=== PATIENT | female | born 2000 | race African-American/Black ===

== ENCOUNTER 2022-05-18 02:55 | Emergency (ER) | payer OTHER ==
[~2022-05-18] VITALS: Ht 172.7 cm; Wt 55.8 kg
[2022-05-18 02:55] VITALS: BP 110/78
--- NOTE | 2022-05-18 04:06 | NUR ---
pt to bed #5
[2022-05-18 04:24] VITALS: BP 120/68
[2022-05-18] MEDS ORDERED: NACL 0.9% 1,000 ML IV ONE ×2 (04:30→05:35)
[2022-05-18] MEDS ORDERED: ONDANSETRON 4 MG/2 ML VIAL IVP ONE ×2 (04:30→06:10)
[2022-05-18] MEDS ORDERED: KETOROLAC 15 MG/ML VIAL IVP ONE (04:30)
[2022-05-18 05:10] LABS: BASOPHILS % (AUTO) 0.2 % (0.0-2.0); EOSINOPHILS % (AUTO) 0.4 % (0.0-4.0); HEMATOCRIT 35.6 % (36-48); HEMOGLOBIN 11.9 g/dL (12.0-16.0); LYMPHOCYTES # (AUTO) 1.4 K/uL (2.5-16.5); LYMPHOCYTES % (AUTO) 20.3 % (20.5-51.1); MEAN CORPUSCULAR HEMOGLOBIN 30 pg (27-31); MEAN CORPUSCULAR HGB CONC 34 g/dL (33-37); MEAN CORPUSCULAR VOLUME 90.5 fL (80-94); MONOCYTES # (AUTO) 0.5 K/uL (0.8-1.0); NEUTROPHILS # (AUTO) 4.9 K/uL (1.8-7.7); NEUTROPHILS % (AUTO) 71.1 % (42.2-75.2); PLATELET COUNT (AUTO) 185 K/uL (140-450); RED BLOOD CELL COUNT(AUTO) 3.94 MIL/uL (4.20-5.40); WHITE BLOOD COUNT (AUTO) 6.8 K/uL (4.8-10.8)
[2022-05-18 05:42] LABS: ALBUMIN 4.2 g/dL (3.4-5.0); ANION GAP 13.1 (8-16); CARBON DIOXIDE 26.1 mmol/L (21-32); CREATININE 0.8 mg/dL (0.6-1.3); POTASSIUM 3.2 mmol/L (3.5-5.1); TOTAL BILIRUBIN 0.5 mg/dL (0.0-1.0)
[2022-05-18] MEDS ORDERED: KETOROLAC 15 MG/ML VIAL ONE (05:59)
[2022-05-18 06:29] LABS: APPEARANCE,URINE CLEAR (CLEAR); BILIRUBIN,URINE NEGATIVE (NEGATIVE); BLOOD, URINE NEGATIVE (NEGATIVE); COLOR,URINE YELLOW (YELLOW); LEUKOCYTE ESTERASE ,URINE NEGATIVE (NEGATIVE); NITRITE, URINE NEGATIVE (NEGATIVE); UGLUCOSE NEGATIVE (NEGATIVE)
[2022-05-18 06:37] LABS: RBC,URINE NONE SEEN /HPF (0-5)
[2022-05-18] MEDS ORDERED: diphenhydrAMINE 50 MG/ML VIAL IVP ONE (07:10)
[2022-05-18] MEDS ORDERED: METOCLOPRAMIDE 10 MG/2 ML INJ VIAL IVP ONE (07:10)
[2022-05-18] MEDS ORDERED: BEN10 PO (07:13)
[2022-05-18] MEDS ORDERED: ONDA-188 PO (07:13)
--- NOTE | 2022-05-18 08:21 | NUR ---
Patient discharged with v/s stable. Written and verbal after care instructions ABOUT ABD PAIN AND VOMITING given and explained. Patient alert, oriented and verbalized understanding of instructions. Ambulatory with steady gait. All questions addressed prior to discharge. ID band removed. Patient advised to follow up with PMD. Rx of BENTYL AND ZOFRAN given. Patient educated on indication of medication including possible reaction and side effects. Opportunity to ask questions provided and answered.
== END 2022-05-18 08:21 | disposition home or self-care (01) ==
LOC: MED 02:55
DX: R11.2 Nausea with vomiting, unspecified (principal); R10.13 Epigastric pain; Z79.899 Other long term (current) drug therapy
CPT/HCPCS: 36415; 74177; 80053; 81001; 81025; 83690; 85025; 87086; 96361; 96374; 96375; 96376; 99285; J1200; J1885; J2405; J2765; J7030; Q9967

== ENCOUNTER 2022-07-21 02:25 | Emergency (ER) | payer OTHER ==
[~2022-07-21] VITALS: Ht 172.7 cm; Wt 59.4 kg
[~2022-07-21 02:25] MED LIST: BEN10 PO; ONDA-188 PO
[2022-07-21 02:32] VITALS: BP 100/66
--- NOTE | 2022-07-21 02:40 | NUR ---
Patient taken to bed 6.
[2022-07-21 02:42] VITALS: BP 100/66
[2022-07-21] MEDS: ONDANSETRON 4 MG ODT PO ONE (02:52)
--- NOTE | 2022-07-21 02:53 | NUR ---
22 Y/O F presents with NV x4days and constipation xyesterday. pt is A&Ox4, skin intact, ambulatory without assistance, respirations even and unlabored. parents are bedside. pmh-pt denies NKA
--- NOTE | 2022-07-21 02:56 | NUR ---
Dr. Sheffield examining patient.
[2022-07-21] MEDS ORDERED: DICYCLOMINE HCL LIQUID 10 MG/5 ML UDC ONE (03:10)
[2022-07-21] MEDS ORDERED: METO-486 PO (03:13)
[2022-07-21] MEDS ORDERED: MAG355OR2 PO (03:13)
[2022-07-21] MEDS ORDERED: ONDA-188 SL (03:13)
[2022-07-21] MEDS: METOCLOPRAMIDE 10 MG TAB PO ONE (03:20)
[2022-07-21] MEDS: DICYCLOMINE HCL LIQUID 20 MG, ALUMINUM HYD/MAG/SIMETHICONE 30 ML, LIDOCAINE VISCOUS 2% ... PO ONE ×3 (03:21)
[2022-07-21] MEDS: ALUMINUM HYD/MAG/SIMETHICONE 30 ML UDC ONE (03:22)
--- NOTE | 2022-07-21 03:22 | NUR ---
pt stated zofran did not help and made her feel worse
--- NOTE | 2022-07-21 03:40 | NUR ---
Patient discharged with v/s stable. Written and verbal after care instructions given and explained. Patient alert, oriented and verbalized understanding of instructions. Ambulatory with steady gait. All questions addressed prior to discharge. ID band removed. Patient advised to follow up with PMD. Rx of maalox, reglan, and zofran given. Opportunity to ask questions provided and answered. Dr. Sheffield orders reinforced
--- NOTE | 2022-07-21 03:42 | NUR ---
Dr. Graff cancelled preg order.
--- NOTE | 2022-07-21 03:42 | NUR ---
The patient's care was reviewed and supervised by Blaire Flood RN.
[2022-07-21] MEDS ORDERED: FAMO-92 PO (09:17)
[2022-07-21] MEDS ORDERED: ONDA-188 PO (09:17)
== END 2022-07-21 03:40 | disposition home or self-care (01) ==
LOC: MED 02:25
DX: R11.2 Nausea with vomiting, unspecified (principal); R10.9 Unspecified abdominal pain; Z79.899 Other long term (current) drug therapy
CPT/HCPCS: 99284; J8597; Q0162

== ENCOUNTER 2022-07-21 05:10 | Emergency (ER) | payer OTHER ==
[~2022-07-21] VITALS: Ht 172.7 cm; Wt 59.4 kg
[~2022-07-21 05:10] MED LIST changes: +MAG355OR2 PO; +METO-486 PO; +ONDA-188 SL
[2022-07-21 05:12] VITALS: BP 100/62
--- NOTE | 2022-07-21 05:23 | NUR ---
PT TAKEN TO BED 8
--- NOTE | 2022-07-21 05:30 | NUR ---
Dr. Sheffield examining patient.
[2022-07-21] MEDS ORDERED: diphenhydrAMINE 50 MG/ML VIAL IM ONE (05:35)
[2022-07-21] MEDS ORDERED: HALOPERIDOL IM 5 MG/ML VIAL IVP ONE (05:35)
[2022-07-21] MEDS ORDERED: HALOPERIDOL IM 5 MG/ML VIAL IM ONE (05:40)
--- NOTE | 2022-07-21 05:40 | NUR ---
pt vomiting bedside. mom at bedside
--- NOTE | 2022-07-21 05:56 | NUR ---
22 Y/O F presents with NV x4days with some constipation. pt is A&Ox4, skin intact, respirations even and unlabored. bedside, pt was vomiting. pt was seen here earlier around 0230 and was discharged by Dr. Sheffield. pt stated the NV is not getting better and she doesnt know why. pmh-pt denies nka
--- NOTE | 2022-07-21 07:04 | NUR ---
lab at bedside
--- NOTE | 2022-07-21 07:15 | NUR ---
REPORT RECEIVED FROM COURT CHILDRESS. ASSUMED CARE AT THIS TIME
--- NOTE | 2022-07-21 07:15 | NUR ---
Pt report given to Tiffany CHILDRESS. Transfer of care at this time.
[2022-07-21 07:29] VITALS: BP 106/53
--- NOTE | 2022-07-21 07:29 | NUR ---
pt at rest w/ eyes closed. respirations even and unlabored. on monitoring tech. mom at bedside
[2022-07-21] MEDS ORDERED: METOCLOPRAMIDE 10 MG/2 ML INJ VIAL IVP ONE ×2 (07:40→08:15)
[2022-07-21] MEDS ORDERED: NACL 0.9% 1,000 ML IV ONE (07:40)
--- NOTE | 2022-07-21 07:57 | NUR ---
pt encouraged to give urine sample. urine cup left at bedside
[2022-07-21 08:08] LABS: BASOPHILS % (AUTO) 0.3 % (0.0-2.0); HEMATOCRIT 38.1 % (36-48); HEMOGLOBIN 12.8 g/dL (12.0-16.0); LYMPHOCYTES # (AUTO) 1.3 K/uL (2.5-16.5); LYMPHOCYTES % (AUTO) 14.5 % (20.5-51.1); MEAN CORPUSCULAR HEMOGLOBIN 30 pg (27-31); MEAN CORPUSCULAR HGB CONC 34 g/dL (33-37); MEAN CORPUSCULAR VOLUME 89.7 fL (80-94); MONOCYTES # (AUTO) 0.3 K/uL (0.8-1.0); MONOCYTES % (AUTO) 3.8 % (1.7-9.3); NEUTROPHILS # (AUTO) 7.4 K/uL (1.8-7.7); NEUTROPHILS % (AUTO) 81.4 % (42.2-75.2); PLATELET COUNT (AUTO) 211 K/uL (140-450); RED BLOOD CELL COUNT(AUTO) 4.25 MIL/uL (4.20-5.40); WHITE BLOOD COUNT (AUTO) 9.1 K/uL (4.8-10.8)
--- NOTE | 2022-07-21 09:04 | NUR ---
pt w/ new nausea onset. MADE AWARE
[2022-07-21 09:10] LABS: ALBUMIN 4.4 g/dL (3.4-5.0); ANION GAP 15.9 (8-16); CARBON DIOXIDE 23.8 mmol/L (21-32); CREATININE 0.9 mg/dL (0.6-1.3); POTASSIUM 3.7 mmol/L (3.5-5.1); TOTAL BILIRUBIN 0.5 mg/dL (0.0-1.0)
--- NOTE | 2022-07-21 09:15 | NUR ---
PT REQUESTING TO AMA. LANCASTER MADE AWARE
--- NOTE | 2022-07-21 09:16 | NUR ---
IV removed, catheter intact and site benign. Applied folded 4x4 gauze and tape to stop bleeding.
[2022-07-21] MEDS ORDERED: FAMO-92 PO (09:17)
[2022-07-21] MEDS ORDERED: ONDA-188 PO (09:17)
--- NOTE | 2022-07-21 09:18 | NUR ---
Patient does not wish to proceed with medical care recommended by MD ROGERS. Patient given information related to possible complications, up to and including , which could occur as a result of leaving hospital at this time. Patient verbalizes understanding of risks involved leaving against medical advice. Patient has signed AMA form. LEFT W/O PAPERWORK
== END 2022-07-21 09:18 | disposition left against medical advice (07) ==
LOC: MED 05:10
DX: R11.2 Nausea with vomiting, unspecified (principal); F12.90 Cannabis use, unspecified, uncomplicated; Z79.899 Other long term (current) drug therapy
CPT/HCPCS: 36415; 80053; 83690; 85025; 96361; 96372; 96374; 96376; 99284; J1200; J2765; 96375; J1630